=== PATIENT | male | born 2000 | race Caucasian/White ===

== ENCOUNTER 2021-03-24 13:19 | Emergency (ER) | payer OTHER ==
[~2021-03-24] VITALS: Ht 175.3 cm; Wt 71.7 kg
[2021-03-24 13:54] LABS: BASOPHILS % (AUTO) 1 % (0-1); EOSINOPHILS % (AUTO) 0 % (1-7); LYMPHOCYTES % (AUTO) 17 % (22-44); MEAN CORPUSCULAR HEMOGLOBIN 28.2 pg (27.5-34.5); MEAN CORPUSCULAR HGB CONC 32.2 g/dL (33.2-36.2); MEAN PLATELET VOLUME 8.5 fL (7.4-10.4); MONOCYTES % (AUTO) 11 % (2-9); NEUTROPHILS % (AUTO) 71 % (42-75); PLATELET COUNT 184 x10^3/uL (130-400); RED BLOOD COUNT 5.19 x10^6/uL (4.38-5.82); RED CELL DISTRIBUTION WIDTH 12.9 % (9.4-14.8)
[2021-03-24 14:08] LABS: ALBUMIN 3.9 g/dL (3.4-5.0); ANION GAP 3 mmol/L (5-15); CALCIUM 8.6 mg/dL (8.5-10.1); CHLORIDE 105 mmol/L (98-107); CREATININE 1.15 mg/dL (0.7-1.3)
--- NOTE | 2021-03-24 15:21 | NUR ---
TECHNICAL ASSOCIATE: PT TO ROOM FROM LOBBY
[2021-03-24] MEDS ORDERED: DIPHENHYDRAMINE 50 MG/ML, 1ML ONE (15:49)
[2021-03-24] MEDS ORDERED: KETOROLAC 30 MG/1 ML ONE (15:49)
[2021-03-24] MEDS ORDERED: METOCLOPRAMIDE 5 MG/ML, 2ML ONE (15:49)
[2021-03-24] MEDS ORDERED: ACETAMINOPHEN 500 MG TABLET ONE (15:49)
[2021-03-24] MEDS ORDERED: METOCLOPRAMIDE 5 MG/ML, 2ML IVPush ONE (16:00)
[2021-03-24] MEDS ORDERED: KETOROLAC 30 MG/1 ML IVPush ONE (16:00)
[2021-03-24] MEDS ORDERED: SODIUM CHLORIDE FLUSH 10ML SYR IVF ONE (16:00)
[2021-03-24] MEDS ORDERED: ACETAMINOPHEN 500 MG TABLET PO ONE (16:00)
[2021-03-24] MEDS ORDERED: SODIUM CHLORIDE 0.9% 1,000ML IVBOLUS ONE (16:00)
[2021-03-24] MEDS ORDERED: DIPHENHYDRAMINE 50 MG/ML, 1ML IVPush ONE (16:00)
--- NOTE | 2021-03-24 16:15 | NUR ---
PT AMBULATORY TO ROOM 33 W/ C/O MEDEL AND N/V. PT STATES HE THINKS HE HAS COVID. DENIES ANY CP/SOB. PT RESTING ON GURNEY. NADN. MONITORS APPLIED. VSS. WARM BLANKET PROVIDED. CALL LIGHT IN REACH.
[2021-03-24 17:08] VITALS: BP 120/68
--- NOTE | 2021-03-24 17:08 | NUR ---
PT RESTING ON GURNEY. NADN. ESTRADA.
== END 2021-03-24 17:30 | disposition home or self-care (01) ==
LOC: ED 17:25
DX: U07.1 COVID-19 (principal); B34.9 Viral infection, unspecified; G43.C0 Periodic headache syndromes in child or adult, not intractable; R11.10 Vomiting, unspecified
CPT/HCPCS: 36415; 71045; 80048; 82040; 85025; 96361; 96374; 96375; 99284; J1200; J1885; J2765; J7030; U0003; U0005